=== PATIENT | female | born 1960 | race Caucasian/White ===

== ENCOUNTER 2017-09-13 09:29 | Inpatient (IN) | payer OTHER ==
[~2017-09-13] VITALS: Ht 162.6 cm; Wt 70.3 kg
[2017-09-13 09:48] LABS: BASOPHILS 0.1 % (0-2); EOSINOPHILS 0 % (0-7); HEMATOCRIT 46.6 % (36.0-48.0); HEMOGLOBIN 16.8 g/dL (12-16); IMMATURE GRANULOCYTES 0.7 % (0-5); LYMPHOCYTES 6.6 % (15-50); MCH 31.9 pg (26.0-34.0); MCHC 36.1 g/dL (31.0-37.0); MCV 88.4 fL (80.0-100.0); MEAN PLATELET VOLUME 10.4 fL (7.4-10.4); MONOCYTES 4.3 % (2-11); NEUTROPHILS 88.3 % (40-80); PLATELET COUNT 349 10x3/uL (130-400); RBC 5.27 10x6/uL (4.00-5.40); RDW 13.7 % (11.5-14.5); WBC 17.1 10x3/uL (4.8-10.8)
[2017-09-13 10:10] LABS: ALBUMIN 3.6 g/dL (3.4-5.0); ALKALINE PHOSPHATASE 265 U/L (46-116); ALT (SGPT) 584 U/L (10-68); AMYLASE - SERUM 56 U/L (25-115); BILIRUBIN - TOTAL 1.68 mg/dL (0.2-1.3); CALC OSMOLALITY 285 mosm/kg (275-300); CALCIUM 9.1 mg/dL (8.5-10.1); CARBON DIOXIDE 26.9 mmol/L (21.0-32.0); CHLORIDE - SERUM 102 mmol/L (98-107); CREATININE - SERUM 0.8 mg/dL (0.6-1.3); GLUCOSE 205 mg/dL (74-106); LIPASE 89 U/L (73-393); POTASSIUM - SERUM 3.4 mmol/L (3.5-5.1); PROTEIN - SERUM 7.8 g/dL (6.4-8.2); SODIUM 141 mmol/L (136-145); UREA NITROGEN 10 mg/dL (7-18); eGFR NON AFRICAN AMERICAN 78 mL/min (90-120)
[2017-09-13 10:14] LABS: APPEARANCE HAZY (CLEAR); BACTERIA MODERATE /hpf (NONE SEEN); BILIRUBIN NEGATIVE (NEGATIVE); COLOR DK YELLOW (YELLOW); GLUCOSE 250 mg/dL (NEGATIVE); GRANULAR CAST OCC /lpf (NONE SEEN); KETONE MODERATE mg/dL (NEGATIVE); MUCUS >1+ /lpf (NONE SEEN); NITRITE NEGATIVE (NEGATIVE); PROTEIN NEGATIVE (NEGATIVE); RED CELLS - URINE 0-5 /hpf (0-5); SPECIFIC GRAVITY 1.025 (1.005-1.020); WHITE CELLS - URINE 0-5 /hpf (0-5)
[2017-09-13 12:39] LABS: APTT 26.2 SECONDS (22.8-39.4); INR 1.01 (0.85-1.17); PROTIME 12.9 SECONDS (11.6-15.0)
[2017-09-13 14:57] VITALS: BP 148/78; BMI 26.6
[2017-09-13 21:52] VITALS: BP 141/77
[2017-09-14 00:37] VITALS: BP 138/80
[2017-09-14 04:35] LABS: BASOPHILS 0.1 % (0-2); EOSINOPHILS 0.2 % (0-7); HEMATOCRIT 41.4 % (36.0-48.0); HEMOGLOBIN 14.6 g/dL (12-16); IMMATURE GRANULOCYTES 0.4 % (0-5); LYMPHOCYTES 11.9 % (15-50); MCH 31.2 pg (26.0-34.0); MCHC 35.3 g/dL (31.0-37.0); MCV 88.5 fL (80.0-100.0); MEAN PLATELET VOLUME 10.2 fL (7.4-10.4); NEUTROPHILS 78.4 % (40-80); RBC 4.68 10x6/uL (4.00-5.40)
[2017-09-14 04:40] LABS: PLATELET COUNT 259 10x3/uL (130-400); WBC 11.2 10x3/uL (4.8-10.8)
[2017-09-14 04:59] VITALS: BP 138/78
[2017-09-14 04:59] LABS: ALBUMIN 2.7 g/dL (3.4-5.0); ALKALINE PHOSPHATASE 239 U/L (46-116); BILIRUBIN - DIRECT 2.71 mg/dL (0.00-0.30); BILIRUBIN - INDIRECT 0.81 mg/dL (0.00-1.00); BILIRUBIN - TOTAL 3.52 mg/dL (0.2-1.3); CALCIUM 8.3 mg/dL (8.5-10.1); CARBON DIOXIDE 25.4 mmol/L (21.0-32.0); CHLORIDE - SERUM 104 mmol/L (98-107); CREATININE - SERUM 0.6 mg/dL (0.6-1.3); LIPASE 66 U/L (73-393); MAGNESIUM - SERUM 1.7 mg/dL (1.8-2.4); POTASSIUM - SERUM 3.4 mmol/L (3.5-5.1); PROTEIN - SERUM 6.3 g/dL (6.4-8.2); SODIUM 140 mmol/L (136-145); eGFR NON AFRICAN AMERICAN > 90 mL/min (90-120)
[2017-09-14 05:01] LABS: ALT (SGPT) 1084 U/L (10-68); AMYLASE - SERUM 30 U/L (25-115); CALC OSMOLALITY 277 mosm/kg (275-300); GLUCOSE 121 mg/dL (74-106); UREA NITROGEN 6 mg/dL (7-18)
[2017-09-14 07:44] VITALS: BP 119/75
[2017-09-14 11:20] LABS: HEPATITIS C ANTIBODY <0.1 (0.0-0.9)
[2017-09-14 12:02] VITALS: BP 140/77
[2017-09-14 12:20] VITALS: BMI 26.6
[2017-09-14 17:05] VITALS: Ht 162.6 cm; Wt 70.3 kg
[2017-09-14 17:40] VITALS: BP 128/73
[2017-09-14 21:02] VITALS: BP 124/77
[2017-09-15] VITALS (7 sets, daily range): BP systolic 103–134; BP diastolic 66–79
[2017-09-15 06:30] LABS: BASOPHILS 0.2 % (0-2); EOSINOPHILS 0.3 % (0-7); HEMATOCRIT 38.9 % (36.0-48.0); HEMOGLOBIN 13.3 g/dL (12-16); IMMATURE GRANULOCYTES 0.5 % (0-5); LYMPHOCYTES 14.6 % (15-50); MCH 30.7 pg (26.0-34.0); MCHC 34.2 g/dL (31.0-37.0); MCV 89.8 fL (80.0-100.0); MEAN PLATELET VOLUME 10.6 fL (7.4-10.4); MONOCYTES 8.9 % (2-11); NEUTROPHILS 75.5 % (40-80); PLATELET COUNT 240 10x3/uL (130-400); RBC 4.33 10x6/uL (4.00-5.40); RDW 14.1 % (11.5-14.5)
[2017-09-15 06:34] LABS: WBC 6.1 10x3/uL (4.8-10.8)
[2017-09-15 06:39] LABS: INR 1.19 (0.85-1.17); PROTIME 14.6 SECONDS (11.6-15.0)
[2017-09-15 06:40] LABS: APTT 32.9 SECONDS (22.8-39.4)
[2017-09-15 06:49] LABS: ALBUMIN 2.3 g/dL (3.4-5.0); ALKALINE PHOSPHATASE 222 U/L (46-116); AMYLASE - SERUM 30 U/L (25-115); BILIRUBIN - DIRECT 2.04 mg/dL (0.00-0.30); BILIRUBIN - INDIRECT 0.86 mg/dL (0.00-1.00); CALC OSMOLALITY 280 mosm/kg (275-300); CALCIUM 8.3 mg/dL (8.5-10.1); CARBON DIOXIDE 26.8 mmol/L (21.0-32.0); CHLORIDE - SERUM 109 mmol/L (98-107); GLUCOSE 95 mg/dL (74-106); LIPASE 76 U/L (73-393); POTASSIUM - SERUM 3.9 mmol/L (3.5-5.1); PROTEIN - SERUM 5.8 g/dL (6.4-8.2); SODIUM 142 mmol/L (136-145); UREA NITROGEN 6 mg/dL (7-18)
[2017-09-15 06:52] LABS: ALT (SGPT) 744 U/L (10-68); CREATININE - SERUM 0.8 mg/dL (0.6-1.3); eGFR NON AFRICAN AMERICAN 78 mL/min (90-120)
[2017-09-16 04:30] VITALS: BP 97/63
[2017-09-16 06:15] LABS: ALBUMIN 2.3 g/dL (3.4-5.0); ALKALINE PHOSPHATASE 191 U/L (46-116); AMYLASE - SERUM 30 U/L (25-115); CARBON DIOXIDE 23.5 mmol/L (21.0-32.0); CHLORIDE - SERUM 108 mmol/L (98-107); CREATININE - SERUM 0.6 mg/dL (0.6-1.3); GLUCOSE 94 mg/dL (74-106); LIPASE 65 U/L (73-393); POTASSIUM - SERUM 3.5 mmol/L (3.5-5.1); PROTEIN - SERUM 5.6 g/dL (6.4-8.2); SODIUM 143 mmol/L (136-145); eGFR NON AFRICAN AMERICAN > 90 mL/min (90-120)
[2017-09-16 06:19] LABS: ALT (SGPT) 540 U/L (10-68); CALC OSMOLALITY 282 mosm/kg (275-300); UREA NITROGEN 8 mg/dL (7-18)
[2017-09-16] MEDS ORDERED: LEVAQUIN500 MG PO (08:02)
[2017-09-16] MEDS ORDERED: HYDROCODON-ACE1 EAC7 PO (08:02)
[2017-09-16] MEDS ORDERED: MIRALAX17 GM PO (08:03)
[2017-09-16 08:18] VITALS: BP 96/55
== END 2017-09-16 14:23 | disposition home or self-care (01) | DRG 419 ==
LOC: D.ER 09:29 → D.EDHOLD 12:39 → D.MS 12:39
PROVIDERS: Emergency Medicine; Internal Medicine Gastroenterology; Surgery
PROC: 0FC98ZZ Extirpation of Matter from Common Bile Duct, Via Natural or Artificial Opening Endoscopic (ICD-10-PCS; 2017-09-14)
PROC: 0F798ZZ Dilation of Common Bile Duct, Via Natural or Artificial Opening Endoscopic (ICD-10-PCS; principal; 2017-09-14 15:30)
PROC: 0FT44ZZ Resection of Gallbladder, Percutaneous Endoscopic Approach (ICD-10-PCS; 2017-09-15)
DX: K80.62 Calculus of gallbladder and bile duct with acute cholecystitis without obstruction (principal); R74.0 Nonspecific elevation of levels of transaminase and lactic acid dehydrogenase [LDH]